=== PATIENT | male | born 1930 | race Caucasian/White ===

== ENCOUNTER 2017-09-08 17:25 | Emergency (ER) | payer MEDICARE, BC ==
[2017-09-08 18:37] LABS: CHLORIDE,CL 106 mmol/L (98-107); SODIUM,NA 143 mmol/L (136-145)
--- NOTE | 2017-09-08 18:58 | EDM.PDOC ---
<Francis Leone W - Last Filed: 09/08/17 18:52> ED HPI GENERAL MEDICAL PROBLEM - General Chief Complaint: General Time Seen by Provider: 09/08/17 17:25 Source of Information: Reports: Patient History Limitations: Reports: No Limitations - History of Present Illness INITIAL COMMENTS - FREE TEXT/NARRATIVE: Pt. presents to ER with complaints of "heaviness" to his R foot. Pt. states that the symptoms started at approx. 16:00 this afternoon. Pt. called 911 and he was transported to this facility. Pt. states that yesterday he had similar symptoms, with heaviness of the R foot as well as unsteady gait at that time as well. He denies any head trauma. He states that he has a history of peripheral neuropathy, but states that these symptoms were "different". He described the sensation as if something heavy was hanging from his foot, and felt as though he was standing on a soft surface, not a hard floor. EMS staff relates that he was somewhat unsteady on his feet when he was walking on scene. He denies any other neurological symptoms, such as difficulty with speech or ambulation, headache, chest pain, or shortness of breath. He is currently anticoagulated with coumadin due to A-fib, and his INR is therapeutic at 2.7. Initial NIH stroke scale was 0. Onset: Today Onset Date: 09/08/17 Onset Time: 16:00 - Related Data Allergies Allergy/AdvReac Type Severity Reaction Status Date / Time No Known Allergies Allergy Verified 09/08/17 17:38 Home Meds: Home Meds Acetaminophen [Tylenol Extra Strength] 1 tab PO TID PRN 11/05/14 [History] Acyclovir [Zovirax] 400 mg PO BID 11/05/14 [History] Aspirin [Children's Aspirin] 81 mg PO DAILY 11/05/14 [History] Desonide [Desonide 0.05%] 1 applic TRDERM BID PRN 11/05/14 [History] Fish Oil/[place]-3 Fatty Acids [Fish Oil 1,000 MG] 1 cap PO BID 11/05/14 [History] Flaxseed Oil 1,000 mg PO BID 11/05/14 [History] Furosemide 80 mg PO DAILY 11/05/14 [History] Hydrocodone/Acetaminophen [[place] 5-325] 1 tab PO Q4HR PRN 11/05/14 [History] Loratadine 10 mg PO ASDIRECTED PRN 11/05/14 [History] Losartan [Cozaar] 25 mg PO DAILY 11/05/14 [History] Multivitamin with Minerals [Multiple Vitamin] 1 tab PO DAILY 11/05/14 [History] Pantoprazole Sodium [Protonix] 20 mg PO DAILY 11/05/14 [History] Simvastatin [Zocor] 10 mg PO DAILY 11/05/14 [History] Temazepam [Restoril] 1 cap PO DAILY 11/05/14 [History] Triamcinolone Acetonide [Kenalog 0.1% Crm] 1 applic BID 11/05/14 [History] Warfarin [Coumadin] 5 mg PO DAILY 11/05/14 [History] metFORMIN [Glucophage] 500 mg PO BIDMEALS 11/05/14 [History] metroNIDAZOLE [metroNIDAZOLE 0.75% Cream] 1 applic EPIDUR BID PRN 11/05/14 [ History] Past Medical History HEENT History: Reports: Cataract Cardiovascular History: Reports: Afib, Heart Failure, High Cholesterol, Hypertension Endocrine/Metabolic History: Reports: Diabetes, Type II - Past Surgical History HEENT Surgical History: Reports: Cataract Surgery Musculoskeletal Surgical History: Reports: Arthroscopic Knee, Shoulder Surgery Social & Family History - Tobacco Use Smoking Status *Q: Never Smoker Used Tobacco, but Quit: Yes Month Tobacco Last Used: 40 years ago Second Hand Smoke Exposure: No - Alcohol Use Days Per Week of Alcohol Use: 2 Number of Drinks Per Day: 3 Total Drinks Per Week: 6 - Recreational Drug Use Recreational Drug Use: No Drug Use in Last 12 Months: No ED ROS GENERAL - Review of Systems Review Of Systems: See Below Constitutional: Reports: No Symptoms HEENT: Reports: No Symptoms, Other (History of Meniere's disease) Respiratory: Reports: No Symptoms Cardiovascular: Reports: No Symptoms Endocrine: Reports: No Symptoms GI/Abdominal: Reports: No Symptoms : Reports: No Symptoms Musculoskeletal: Reports: Muscle Stiffness (chronic cramping to posterior portions of his legs.) Neurological: Reports: Paresthesia (chronic peripheral neuropathy to feet), Difficulty Walking, Gait Disturbance. Denies: Confusion, Dizziness, Tremors, Trouble Speaking, Change in Speech Psychiatric: Reports: No Symptoms Hematologic/Lymphatic: Reports: No Symptoms Immunologic: Reports: No Symptoms ED EXAM, GENERAL - Physical Exam Exam: See Below Exam Limited By: No Limitations General Appearance: Alert, WD/WN, No Apparent Distress Eye Exam: Bilateral Eye: EOMI, Normal Fundi, PERRL Ears: Normal External Exam, Normal Canal, Hearing Grossly Normal, Normal TMs Nose: Normal Inspection, Normal Mucosa, No Blood Throat/Mouth: Normal Inspection, Normal Lips, Normal Teeth, Normal Gums, Normal Oropharynx, Normal Voice, No Airway Compromise Head: Atraumatic, Normocephalic Neck: Normal Inspection, Supple, Non-Tender, Full Range of Motion Respiratory/Chest: No Respiratory Distress, Lungs Clear, Normal Breath Sounds, No Accessory Muscle Use, Chest Non-Tender Cardiovascular: Normal Peripheral Pulses, No Edema, No Gallop, No JVD, No Murmur , No Rub, Irregularly Irregular GI/Abdominal: Normal Bowel Sounds, Soft, Non-Tender, No Organomegaly, No Distention, No Abnormal Bruit, No Mass (Male) Exam: No Hernia, Normal Inspection, Normal Prostate, Circumcised Back Exam: Normal Inspection, Full Range of Motion, NT Extremities: Normal Inspection, Normal Range of Motion, Non-Tender, Normal Capillary Refill, No Pedal Edema Neurological: Alert, Oriented, CN II-XII Intact, Normal Cognition, Normal Gait, Normal Reflexes, No Motor/Sensory Deficits, Sensory/Motor Deficit (Please see HPI. Sensory and motor function are WNL.) Psychiatric: Normal Affect Skin Exam: Warm, Dry, Intact, Normal Color, No Rash Course - Vital Signs Last Recorded V/S: Last Vital Signs Temp 36.6 C 09/08/17 17:25 Pulse 62 09/08/17 19:15 Resp 16 09/08/17 19:15 BP 154/90 H 09/08/17 19:15 Pulse Ox 98 09/08/17 19:15 - Orders/Labs/Meds Orders: Active Orders 24 hr Category Date Time Status Head wo Cont [CT] Stat Exams 09/08/17 17:56 Taken Sodium Chloride 0.9% [Saline Flush] Med 09/08/17 19:03 Active 10 ml FLUSH ASDIRECTED PRN Peripheral IV Insertion Adult [OM.PC] Routine Oth 09/08/17 19:03 Ordered Medication Orders Sodium Chloride (Saline Flush) 10 ml FLUSH ASDIRECTED PRN PRN Reason: Keep Vein Open Labs: Laboratory Tests 09/08/17 09/08/17 09/08/17 Range/Units 18:11 18:11 18:11 WBC 9.4 (4.0-10.0) x10^3/uL RBC 3.51 L (4.5-6.0) x10^6/uL Hgb 11.7 L (14.0-18.0) g/dL Hct 35.3 L (40.0-52.0) % MCV 100.6 H (78.0-93.0) fL MCH 33.3 H (26.0-32.0) pg MCHC 33.1 (32.0-36.0) g/dL RDW Coeff of Meaghan 13.5 (10.0-15.0) % Plt Count 231 (130-400) x10^3/uL Neut % (Auto) 54.9 (50.0-80.0) % Lymph % (Auto) 30.6 (25.0-50.0) % Moore % (Auto) 9.2 (2.0-11.0) % Eos % (Auto) 4.8 H (0.0-4.0) % Baso % (Auto) 0.5 (0.2-1.2) % PT 25.3 H D (9.8-11.8) SEC INR 2.4 (2.0-3.5) Sodium 143 (136-145) mmol/L Potassium 3.8 (3.5-5.1) mmol/L Chloride 106 (98-107) mmol/L Carbon Dioxide 29 (21-32) mmol/L BUN 24 H (7-18) mg/dL Creatinine 1.3 (0.70-1.30) mg/dL Est Cr Clr Drug Dosing 42.64 mL/min Estimated GFR (MDRD) 52 Glucose 177 H (74-106) mg/dL Calcium 8.7 (8.5-10.1) mg/dL Corrected Calcium 8.86 (8.5-10.1) mg/dL Total Bilirubin 0.5 (0.2-1.0) mg/dL AST 17 (15-37) U/L ALT 25 (16-63) U/L Alkaline Phosphatase 65 (46-116) U/L C-Reactive Protein < 0.2 (<=0.9) mg/dL Total Protein 7.1 (6.4-8.2) g/dL Albumin 3.8 (3.4-5.0) g/dL Globulin 3.3 Albumin/Globulin Ratio 1.15 Meds: Medications Generic Name Dose Route Start Last Admin Trade Name Freq PRN Reason Stop Dose Admin Sodium Chloride 10 ml 09/08/17 19:03 Saline Flush FLUSH ASDIRECTED PRN Keep Vein Open - Radiology Interpretation Free Text/Narrative:: CT brain is negative Departure - Departure Time of Disposition: 19:25 Disposition: DC/Tfer to Acute Hospital 02 Condition: Good Clinical Impression: TIA (transient ischemic attack) - Discharge Information Referrals: Toyin Webster MD [Primary Care Provider] - Forms: ED Department Discharge, Interfacility Transfer EMTALA - Problem List Review Problem List Initiated/Reviewed/Updated: Yes - Assessment/Plan Assessment:: heaviness to R lower extremity and unsteady gait, resolved. Plan: Pt. will be transported to [facility] in [place] for MRA. I spoke with Dr. Leigh regarding this pt. He will transported via [facility] ground ambulance. <Rusty Gaspar - Last Filed: 09/08/17 21:26> Course - Re-Assessments/Exams Free Text/Narrative Re-Assessment/Exam: 09/08/17 21:26 patient did leave for [place] at 2105 via EMS
[2017-09-08] MEDS ORDERED: Sodium Chloride 0.9% 10 ML Syringe FLUSH PRN (19:03)
[2017-09-08 19:16] VITALS: BP 154/90
== END 2017-09-08 21:05 | disposition short-term general hospital (02) ==
LOC: VM.ED 17:25
DX: G45.9 Transient cerebral ischemic attack, unspecified (principal); I11.0 Hypertensive heart disease with heart failure; I50.9 Heart failure, unspecified; E11.9 Type 2 diabetes mellitus without complications; Z79.899 Other long term (current) drug therapy; Z79.82 Long term (current) use of aspirin; Z79.01 Long term (current) use of anticoagulants; Z79.84 Long term (current) use of oral hypoglycemic drugs; Z87.891 Personal history of nicotine dependence
CPT/HCPCS: 36415; 70450; 80053; 85025; 85610; 86140; 99285

== ENCOUNTER 2019-08-16 11:37 | Inpatient (IN) | payer MEDICARE, BC ==
[2019-08-16] MEDS ORDERED: Acetaminophen 325 MG Tab PO PRN (11:47)
[2019-08-16] MEDS ORDERED: Loratadine 10 MG Tab PO PRN (12:45)
[2019-08-16] MEDS ORDERED: DESONIDE TRDERM PRN (12:45)
[2019-08-16] MEDS ORDERED: Acetaminophen/HYDROcodone 325-5 MG Tab PO PRN (12:45)
[2019-08-16] MEDS ORDERED: TRIAMCINOLONE ACETONIDE 0.5% TOP PRN (12:45)
[2019-08-16] MEDS ORDERED: Non-Formulary Medication 1 Each (Metronidazole [Metronidazole 0.75% Cream] 1 APPLIC) EPIDUR PRN (12:45)
[2019-08-16] MEDS ORDERED: Acyclovir 200 MG Cap PO PRN (12:45)
[2019-08-16 12:53] LABS: ANION GAP 17.2 mmol/L (10-20); CHLORIDE,CL 102 mmol/L (98-107); SODIUM,NA 138 mmol/L (136-145)
[2019-08-16] MEDS: Azithromycin 250 MG Tab PO SCH (13:37)
[2019-08-16] MEDS: cefTRIAXone 1 GM Vial IVPUSH SCH (13:37)
[2019-08-16] MEDS ORDERED: Sodium Chloride 0.9% 1,000 ML IV SCH (13:45)
[2019-08-16] MEDS ORDERED: Albuterol HFA 18 Gm Inhaler INH PRN (14:16)
[2019-08-16] MEDS ORDERED: Albuterol 0.083% 2.5 MG/3 ML Neb Soln NEB PRN (14:21)
[2019-08-16] MEDS ORDERED: Iopamidol 612 MG/ML 100 ML Bottle IVPUSH ONE (14:57)
--- NOTE | 2019-08-16 15:18 | PCM.SN ---
- Free Text/Narrative Note: Pt's influenza A came back positive. Due to sudden worsening of symptoms for 1 month, will treat with tamiflu. Dose is reduced due to renal function. Clinic chest xray had probable pneumonia with fibrosis, proBNP was elevated, normal troponin and D Dimer, will do chest CT with contrast for more definitive lung evaluation. Will continue rocephin and zithromax, with scheduled nebs of duonebs. Sign out will be given to Anthony Deg[facility] for weekend care.
[2019-08-16] MEDS: Oseltamivir 30 MG Cap PO SCH ×2 (15:57→19:45)
[2019-08-16] MEDS: Albuterol/Ipratropium 3.0-0.5 MG/3 ML Neb Soln NEB SCH ×2 (15:57→19:46)
--- NOTE | 2019-08-16 16:03 | CT ---
[id number] CT/CT Chest W IV Exam: CT Chest W IV Clinical Data: INTERSTITIAL FIBROSIS SHORTNESS OF BREATH COMPARISON: CORRELATION IS MADE WITH THE CHEST RADIOGRAPH OF JULY 19, 2019 FINDINGS: There is mild fibrosis at the lung bases There is mild to moderate bronchiectasis There is no honeycombing There is minimal pleural thickening at the lung bases also There is upper lobe centrilobular emphysema There is a moderate degree of mediastinal adenopathy There is no pulmonary embolus There is suggestion of pulmonary artery hypertension There is a fatty liver. There is a small upper pole left renal cyst There is no adrenal mass IMPRESSION: INTERSTITIAL PULMONARY PARENCHYMAL FIBROSIS THIS MAY REPRESENT NONSPECIFIC INTERSTITIAL PNEUMONITIS CENTRILOBULAR EMPHYSEMA MODERATE MEDIASTINAL ADENOPATHY NO PULMONARY EMBOLUS SEEN Neftali Devi MD 08/16/19 0250 Thank you for allowing us to participate in the care of your patient.
--- NOTE | 2019-08-16 18:00 | HP ---
CHIEF COMPLAINT: Shortness of breath and weakness. HISTORY OF PRESENT ILLNESS: The patient is an 89-year-old male who has been treated at the clinic outpatient for bronchopneumonia for several weeks. He first got ill on 07/19/2019 and was felt to have an atypical pneumonia, which he commented at the clinic had been actually bothering him for a month of cough. He is having a productive yellow sputum. He could barely go up 13 steps, had to stop because he was more short of breath, which was not as normal for him. His heart rate had been up into the 130s and saturations have been down to 87%. Energy level is poor. He had quit smoking in the past, not really diagnosed with COPD, but had been started on a nebulizer just about a week ago. When he was seen on 07/19/2019, he had a chest x-ray that was done at [facility], which came back normal. Lab work had been done, which showed a white blood cell count at that time of 11.5, hemoglobin 9.6 with 61% neutrophils, 25 lymphocytes. He had a creatinine of 1.38, glucose of 195, GFR 49, which is about the same. Sodium 141, potassium was normal. The patient was noted to be slightly anemic with a reticulocyte that was elevated at 2.9, immature reticulocytes were 17.8. Thyroid came back normal at 3.99. Sedimentation rate was 22, ferritin 52, B12 1900, folic acid 19.3. His INR had been staying within therapeutic range. The patient then did have some extra Lasix added on 07/22/2019 of half a pill twice a day for 3 days as he may have had little bit of pulmonary congestion. Then, when the patient was seen on 08/12/2019, chest x-ray was read as question minimally changed. He was placed on Levaquin 500 mg daily. He had stored iron studies, which actually did show him to be low iron at 28, TIBC 27, iron saturation 7, so he was told to start on iron pill. His ferritin level was 39. Hemoglobin had improved to 10.4. The patient has a fullness in his chest. He is feeling little bit more tough with walking. He does have a productive cough. He does live at home alone now since his has . MEDICATIONS: He is currently on acetaminophen 500 mg 3 times a day as needed, acyclovir 400 mg b.i.d. p.r.n. outbreaks, albuterol MDI 2 puffs q.4 hours p.r.n., DuoNeb every 6 hours, aspirin 81 mg 1 pill daily, docusate 100 mg 1 pill daily, ferrous sulfate 325 one pill daily, flax powder twice a day, Flonase 2 puffs twice a day, Lasix 80 mg half a pill daily, Lupron gets 45 mg every 6 months, loratadine 10 mg 1 pill daily as needed, losartan 50 mg 1 pill daily, metformin 500 mg 1 pill twice a day, some capsule twice a day which is a nerve supplement, multivitamin 1 pill a day, omega-3 fatty acid 1000 mg twice a day, Protonix 20 mg 1 pill daily, and Sarna lotion 3 times a day as needed, Zocor 10 mg take a half a pill at bedtime, Restoril 225 one pill daily, triamcinolone 0.5% cream twice a day as needed, Coumadin per protocol. ALLERGIES: None known. His last Coumadin profile had been where he was taking 5 mg on Monday, Monday, , Monday, Monday and he takes 7.5 mg on Mondays and Fridays. PAST MEDICAL HISTORY: The patient has hypertension, chronic atrial fibrillation, hypercholesterolemia. He has had prostate cancer since 2006. He has type 2 diabetes mellitus. He has chronic CHF with cardiomegaly, most recent echocardiogram was on 09/09/2017 where his ejection fraction was 50%. No significant aortic regurgitation. Mild to moderate mitral regurgitation. Mild pulmonic regurgitation. Pulmonary artery pressure 33, mild to moderate tricuspid regurgitation. He has valvular heart disease. TIA in 2018. He had some speech difficulties. MRI was negative. He had a normal CTA of his neck and CTA of his brain, felt to be sciatica with right leg mobility issues, did resolve. He has had chronic kidney disease stage 3, mitral valve disorder. He has had Nestor-Mason respirations with known central apnea, well controlled with CPAP. He has had obstructive sleep apnea. He has had thoracic back pain, macrocytic anemia. He has had anxiety disorder, some forgetfulness, 2013 mini- mental status was 29/30, which may have been stressed with his . He has had pulmonary hypertension, in 2014 it was up to 70, but improved I believe with CPAP. He has had primary insomnia, goiter, diabetic neuropathy of his great toe, chronic right shoulder pain, gastroesophageal reflux disease, hyperplastic polyp of the descending colon. His last colonoscopy was on 11/11/2014 and it was normal. He had previous radiation proctitis noted in 2008. Next scope was felt to be p.r.n. He has had sciatica on his back. He has had some skin lesions. He has had BPH. He has had rosacea. Personal history of allergic rhinitis. He has had gingival and periodontal disease, sinus pain, cataracts, chest pain. He had a Cardiolite stress test on 04/16/2007 that was normal. He has had zoster of his eye on the right, had vertebral crush injury when struck by a large tinner automatic. 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 He has had atopic dermatitis. PAST SURGICAL HISTORY: He has had arthroscopy of his left knee in 1988, right shoulder in 2000. 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 He has had tear duct system probing in the past, skin biopsy. FAMILY MEDICAL HISTORY: Mother has had a stroke. Father has had heart failure. Sister has had heart failure. Another sister had pancreatic cancer. Brother had cerebral aneurysm. Mother brother had alcoholism. SOCIAL HISTORY: He is . He has 5 children. 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 He stopped smoking in 1997. Prior to that, he smoked a pack a day. He has had alcohol consumption of beer a day in the past. He currently lives at home alone. REVIEW OF SYSTEMS: His weight has been staying about the same. He has been little bit more short of breath with activities. No heart palpitations. Does have a productive cough. No nausea. No diarrhea. Does feel weak. No bruise on skin. PHYSICAL EXAMINATION: Vital Signs: Show that his weight is 184 pounds, temperature 98.3, pulse is 106, blood pressure is 126/60. General: He does appear little bit pale. Does have to steady himself with walking. Voice is somewhat gravelly. HEENT: Tympanic membranes are normal bilaterally. Pupils equal and reactive to light. No injection, question slightly dry. Neck: No anterior cervical lymphadenopathy. Heart: Regular rate and rhythm. Lungs: Have diminished breath sounds on bases bilaterally. Abdomen: Soft. Extremities: Lower extremities, no edema. Neurologic: He is alert and oriented x3. IMAGING DATA: Chest x-ray was obtained, which shows questionably increased infiltrate along left heart border, but difficult to read. Do not appreciate effusions. IMPRESSION: 1. Community-acquired pneumonia, failing outpatient therapy with previous use of Vibramycin as well as Levaquin. 2. Chronic obstructive pulmonary disease exacerbation. 3. Mild tachycardia, multifactorial. 4. Chronic atrial fibrillation. 5. Mild dehydration. 6. Chronic kidney disease. 7. Type 2 diabetes mellitus. 8. Obstructive sleep apnea. 9. Valvular heart disease. 10.History of prostate cancer. PLAN: We will admit the patient to Acute Care as I feel he is unsafe at home with his decreased ability to walk and is tachycardic. I would like to have his oxygen saturations monitored as well as his pulse monitored. We will give him DuoNeb. We will place him on Rocephin 1 g IV q.24 as well as Zithromax 500 mg daily. We will closely monitor his INR. He was just recently started on iron 325 one pill daily for some anemia. We will do lab work. Depending on lab work, we need to determine if he might need a CT scan. His chest x-ray from the clinic report is pending. Did discuss code level status with the patient. He does not want to be resuscitated, so therefore he is do not resuscitate/do not intubate. We will get physical therapy for the patient for strengthening. Do anticipate his hospital stay to be short unless he would need further evaluation with cardiac status such as for heart failure. If that would be needed, he would need transfer to [place]. Lab work is pending at the time of this dictation. Will check for Influenza as well as rule out heart failure concersn. GM08/16/2019 12:10:11 MODL: 08/16/2019 17:53:26 /[id number] CAROLINE
[2019-08-16] MEDS: Fish Oil/Omega-3 Fatty Acids 1 Gm Cap PO SCH (19:44)
[2019-08-16] MEDS: Warfarin 2.5 MG Tab PO SCH (19:45)
[2019-08-16] MEDS: FLAXSEED OIL 1000 MG PO SCH (19:46)
[2019-08-16] MEDS ORDERED: Temazepam 15 MG Cap PO SCH (20:00)
[2019-08-16] MEDS: Acetaminophen 500 MG Tab PO PRN (22:43)
[2019-08-17] MEDS: Sodium Chloride 0.9% 10 ML Syringe IV PRN (03:00)
[2019-08-17] MEDS: Albuterol/Ipratropium 3.0-0.5 MG/3 ML Neb Soln NEB SCH ×4 (06:38→21:15)
[2019-08-17] MEDS: Acetaminophen 500 MG Tab PO PRN (06:38)
[2019-08-17] MEDS ORDERED: Fluticasone Propionate Nasal Spray 16 GM Bottle NASBOTH PRN (08:00)
[2019-08-17 08:09] LABS: ANION GAP 15.2 mmol/L (10-20)
[2019-08-17] MEDS: Aspirin 81 MG Tab.Chew PO SCH (10:28)
[2019-08-17] MEDS: metFORMIN 500 MG Tab PO SCH (10:28)
[2019-08-17] MEDS: Fish Oil/Omega-3 Fatty Acids 1 Gm Cap PO SCH ×2 (10:29→21:16)
[2019-08-17] MEDS: Pantoprazole 40 MG Tab.CR PO SCH (10:29)
[2019-08-17] MEDS: Docusate Sodium 100 MG Cap PO SCH (10:29)
[2019-08-17] MEDS: Furosemide 40 MG Tab PO SCH (10:29)
[2019-08-17] MEDS: Simvastatin 10 MG Tab PO SCH (10:29)
[2019-08-17] MEDS: Multivitamins with Iron/Calcium/Folic Acid/Minerals Tab PO SCH (10:29)
[2019-08-17] MEDS: Losartan 50 MG Tab PO SCH (10:30)
[2019-08-17] MEDS: Ferrous Sulfate 325 MG Tab PO SCH (10:30)
[2019-08-17] MEDS: FLAXSEED OIL 1000 MG PO SCH ×2 (10:31→21:17)
[2019-08-17] MEDS: Oseltamivir 30 MG Cap PO SCH ×2 (10:31→21:16)
[2019-08-17] MEDS: cefTRIAXone 1 GM Vial IVPUSH SCH (11:06)
[2019-08-17] MEDS: Azithromycin 250 MG Tab PO SCH (11:06)
[2019-08-17] MEDS: guaiFENesin 600 MG Tab.ER PO SCH ×2 (18:57→21:16)
[2019-08-17] MEDS ORDERED: Temazepam 15 MG Cap PO SCH (20:00)
[2019-08-17] MEDS: Warfarin 5 MG Tab PO SCH (21:16)
[2019-08-17] MEDS: TEMAZEPAM 7.5 MG PO SCH (21:17)
[2019-08-18] MEDS: Albuterol/Ipratropium 3.0-0.5 MG/3 ML Neb Soln NEB SCH ×5 (05:35→20:30)
[2019-08-18 08:19] LABS: ANION GAP 15.1 mmol/L (10-20)
[2019-08-18] MEDS ORDERED: methylPREDNISolone Sodium Succinate 40 MG/1 ML SDV IVPUSH ONE (10:16)
[2019-08-18] MEDS: Furosemide 40 MG Tab PO SCH (10:19)
[2019-08-18] MEDS: Docusate Sodium 100 MG Cap PO SCH (10:19)
[2019-08-18] MEDS: Ferrous Sulfate 325 MG Tab PO SCH (10:19)
[2019-08-18] MEDS: Losartan 50 MG Tab PO SCH (10:19)
[2019-08-18] MEDS: Fish Oil/Omega-3 Fatty Acids 1 Gm Cap PO SCH ×2 (10:19→20:31)
[2019-08-18] MEDS: Oseltamivir 30 MG Cap PO SCH ×2 (10:19→20:32)
[2019-08-18] MEDS: metFORMIN 500 MG Tab PO SCH (10:20)
[2019-08-18] MEDS: Simvastatin 10 MG Tab PO SCH (10:20)
[2019-08-18] MEDS: Pantoprazole 40 MG Tab.CR PO SCH (10:20)
[2019-08-18] MEDS: guaiFENesin 600 MG Tab.ER PO SCH ×2 (10:20→20:32)
[2019-08-18] MEDS: Aspirin 81 MG Tab.Chew PO SCH (10:21)
[2019-08-18] MEDS: Sodium Chloride 0.9% 10 ML Syringe IV PRN ×3 (10:21→20:30)
[2019-08-18] MEDS: FLAXSEED OIL 1000 MG PO SCH ×2 (10:21→20:31)
[2019-08-18] MEDS: Acetaminophen 500 MG Tab PO PRN (10:22)
[2019-08-18] MEDS: Multivitamins with Iron/Calcium/Folic Acid/Minerals Tab PO SCH (10:22)
[2019-08-18] MEDS: cefTRIAXone 1 GM Vial IVPUSH SCH (11:56)
[2019-08-18] MEDS: Azithromycin 250 MG Tab PO SCH (11:57)
[2019-08-18] MEDS ORDERED: metFORMIN 500 MG Tab PO STA (17:38)
[2019-08-18] MEDS: Warfarin 5 MG Tab PO SCH (20:31)
[2019-08-18] MEDS: TEMAZEPAM 7.5 MG PO SCH (20:33)
[2019-08-19] MEDS: Albuterol/Ipratropium 3.0-0.5 MG/3 ML Neb Soln NEB SCH ×4 (07:22→20:27)
[2019-08-19 07:36] LABS: ANION GAP 14.2 mmol/L (10-20); CHLORIDE,CL 105 mmol/L (98-107); SODIUM,NA 139 mmol/L (136-145)
[2019-08-19] MEDS: methylPREDNISolone Sodium Succinate 125 MG/2 ML SDV IVPUSH SCH ×2 (09:13→20:26)
[2019-08-19] MEDS: Acetaminophen 500 MG Tab PO PRN ×2 (09:14→20:26)
[2019-08-19] MEDS: Multivitamins with Iron/Calcium/Folic Acid/Minerals Tab PO SCH (09:15)
[2019-08-19] MEDS: Furosemide 40 MG Tab PO SCH (09:16)
[2019-08-19] MEDS: Ferrous Sulfate 325 MG Tab PO SCH ×3 (09:16→18:50)
[2019-08-19] MEDS: guaiFENesin 600 MG Tab.ER PO SCH ×2 (09:16→20:27)
[2019-08-19] MEDS: metFORMIN 500 MG Tab PO SCH ×2 (09:17→18:50)
[2019-08-19] MEDS: Docusate Sodium 100 MG Cap PO SCH (09:17)
[2019-08-19] MEDS: Losartan 50 MG Tab PO SCH (09:17)
[2019-08-19] MEDS: Pantoprazole 40 MG Tab.CR PO SCH (09:18)
[2019-08-19] MEDS: Aspirin 81 MG Tab.Chew PO SCH (09:18)
[2019-08-19] MEDS: Simvastatin 10 MG Tab PO SCH (09:18)
[2019-08-19] MEDS: Oseltamivir 30 MG Cap PO SCH ×2 (09:19→20:27)
[2019-08-19] MEDS: FLAXSEED OIL 1000 MG PO SCH ×2 (09:19→20:32)
[2019-08-19] MEDS: Fish Oil/Omega-3 Fatty Acids 1 Gm Cap PO SCH ×2 (09:21→20:26)
--- NOTE | 2019-08-19 09:59 | CR ---
[id number] RAD/RAD Chest PA And Lateral EXAM: RAD Chest PA And Lateral INDICATION: INFLUENZA WITH HYPOXEMIA. COMPARISON: None. DISCUSSION: Cardiomediastinal silhouette is enlarged but stable. Chronic interstitial changes are again reidentified, right greater than left. No new pulmonary infiltrate. No pneumothorax or pleural effusion. IMPRESSION: Chronic interstitial changes without acute cardiopulmonary findings. Silver Ribera DO 08/19/19 0958 Thank you for allowing us to participate in the care of your patient.
--- NOTE | 2019-08-19 10:38 | PN ---
Progress Note for ESTRELAL TAYLOR Date: 08/19/2019 Room #: VM.212 SUBJECTIVE: The patient is still feeling a little bit weak. He gets winded with walking. He has only been able to get weaned down to 1 L of oxygen. He does have somewhat of a productive cough. He was started on Mucinex yesterday. It is noted that patient is somewhat anemic and that is new for patient. OBJECTIVE: Vital Signs: His weight is 139.6 kg, his temperature is 36.3, pulse 69, blood pressure is 123/71, respiratory rate is 18, and saturations 91% on room air. Skin: More perfuse than before. Heart: Regular rate. Lungs: Have inspiratory crackles on left base. Abdomen: Soft. Lower Extremities: No edema. He is feeling somewhat weak throughout. LABORATORY DATA: Came back today showing his white blood cell count 8.5, hemoglobin 8.8, platelets are 235, 70 segs, 2 bands, and 16 lymphocytes. INR is 3.0. Sodium is 139, potassium 4.1, creatinine 1.1, GFR greater than 60, and glucose 158. To note, the patient did have a ferritin that was low normal, TIBC that was high, and percent iron and iron were low; that was done in the clinic about a week prior to admission. IMPRESSION: 1. Influenza A. 2. Pneumonitis. 3. Hypoxemia requiring oxygen. 4. Exacerbation of chronic obstructive pulmonary disease. PLAN: We will repeat chest x-ray today on patient. We will place him back on IV steroids to help with lung function. We will increase his iron to 1 pill twice a day. We will continue him on acute care today and tomorrow. If not feeling strong enough, he may need placement on swing bed for further strengthening. GM08/19/2019 08:29:33 MODL: 08/19/2019 10:01:06 /[id number]
--- NOTE | 2019-08-19 10:38 | PN ---
Progress Note for ESTRELLA TAYLOR Date: 08/17/2019 Room #: VM.212 CHIEF COMPLAINT: 1. Fatigue. 2. Chronic cough. 3. Shortness of breath. SUBJECTIVE: This is hospital day #2 for an 89-year-old male patient who was admitted from the [facility] yesterday for a diagnosis of community-acquired pneumonia, COPD, tachycardia. The patient offers no specific complaints today. He states that his cough is improving, however, he feels like he needs to cough up sputum. The patient has not had any headaches, dizziness, or lightheadedness. The patient states that he is feeling much better since yesterday. Patient has not had any chest pain or palpitations. The patient states that he gets a little short of breath with activity. The patient has had to continue using oxygen. OBJECTIVE: VITAL SIGNS: Blood pressure 125/60, temperature is 99.2, pulse is 79, respiratory rate is 22, and oxygen saturation 95% on 2 L. CONSTITUTIONAL: Patient is cooperative. Patient does not appear to be in any acute distress. Patient is alert. RESPIRATORY: Upper lung sounds are clear, the patient has rhonchi and crackles at bilateral bases, no shortness of breath. CARDIAC: Regular rate and rhythm, no murmurs. ABDOMEN: Soft, nontender. Active bowel sounds x4. SKIN: Intact, warm and dry. NEUROLOGICAL: Patient is alert. Sensation intact. Patient is oriented to person, place, and time. LABORATORY STUDIES: 1. CBC, white blood cell count 12.0, hemoglobin 9.3, hematocrit 29.2, platelets are 213,000. 2. INR is 2.2. 3. BMP, sodium is 138, potassium 4.2, chloride 103, CO2 is 24, anion gap is 15.2, BUN is 28, creatinine is 1.3. GFR is 52. Glucose is 186. 4. Lactic acid 1.8. 5. CRP is 15.6. ASSESSMENT: 1. Community-acquired pneumonia, failing outpatient therapy. 2. Chronic obstructive pulmonary disease with acute exacerbation. 3. Mild tachycardia, multifactorial. 4. Chronic atrial fibrillation. 5. Mild dehydration. 6. Chronic kidney disease. 7. Type 2 diabetes. 8. Obstructive sleep apnea. 9. Valvular heart disease. 10.History of prostate cancer. 11.Positive influenza A. PLAN: Hospital day #2 for an 89-year-old male patient who was admitted for the above diagnosis. We will continue the patient on oxygen as his saturations seem to drop with activity. Continue with the same antibiotics that he is currently on. I would encourage the patient to ambulate as he is able. We discussed cough and deep breathing exercises. We will recheck lab work in the morning. The patient does seem to be improving, therefore, I do not think that he needs transfer to higher level of care. I anticipate discharge to home either tomorrow or the next day. The patient is to continue on his home medications. TB: 08/17/2019 14:47:57 MODL: 08/17/2019 16:30:38 /[id number]
--- NOTE | 2019-08-19 10:38 | PN ---
Progress Note for ESTRELLA TAYLOR Date: 08/18/2019 Room #: VM.212 CHIEF COMPLAINT: 1. Shortness of breath. 2. Weakness. SUBJECTIVE: An 89-year-old male patient was admitted on 08/16/2019, for shortness of breath and weakness. The patient has been having a cough and generally not feeling well over the past couple of months. He had been treated with antibiotics as an outpatient, but does not seem to get any better. The patient was found to have community-acquired pneumonia and was admitted for IV antibiotics. The patient states that he continues to have shortness of breath. The patient states he still feels pretty weak. The patient is now having a productive cough producing a brown-appearing purulent sputum. The patient states he feels more short of breath with activity, especially getting up to go to the bathroom. The patient has not had any focal neurological problems. Patient denies any chest pain or palpitations. The patient was started on Mucinex last evening, which seems to help with expectoration. The patient states that he feels somewhat wheezy. The patient denies any pain. The patient does not have any abdominal pain, diarrhea, nausea, or vomiting. PHYSICAL EXAMINATION: General Presentation: The patient is alert. Patient is cooperative. The patient does not appear to be in any acute distress. Respiratory: The patient is tachypneic with activity. The patient has wheezing throughout all lung muñiz with scattered rhonchi, which does not clear with cough. Lung sounds are somewhat decreased. The patient does require oxygen with activity. Cardiovascular: Regular rate and rhythm, no murmur. Abdomen: Soft. Bowel sounds are hypoactive x4. Abdomen is nontender. Skin: Warm, warm, dry, and intact. Neurological: The patient is pleasantly conversive. Patient does not appear to be in any acute distress. Patient is alert and oriented x3. Patient is cooperative. Vital Signs: Weight 186, temperature 98.8, blood pressure 124/74, respiratory rate is 22, and oxygen saturation 87% on room air. LABORATORY WORK: 1. CBC, white blood cell count 9.0, hematocrit 28.5, platelets are 214,000. 2. PT/INR 2.4. 3. CMP: Sodium is 138, potassium 4.1, chloride 103, CO2 is 24, anion gap is 15.1, BUN is 24, creatinine is 1.3, GFR is 52, glucose is 164, calcium 8.4, bilirubin 0.8, AST is 28, ALT is 25, alkaline phosphatase 63, protein is 6.5. ASSESSMENT: 1. Community-acquired pneumonia, currently on IV antibiotics. 2. Chronic obstructive pulmonary disease exacerbation. 3. Mild tachycardia. 4. Chronic atrial fibrillation. 5. Mild dehydration. 6. Chronic kidney disease. 7. Type 2 diabetes mellitus. 8. Obstructive sleep apnea. 9. Valvular heart disease. 10.History of prostate cancer. PLAN: The patient will continue with acute cares for now. Concern is that the patient does not use oxygen at home, however, he has continued the need for oxygen while in the hospital. The patient is also needing oxygen with activity as his saturations drop into the mid 80s. We will continue with current oxygen therapy. We will continue the patient on Rocephin and Zithromax. I will give the patient onetime dose of Solu-Medrol 40 mg IV today to see if that will help with his wheezing. I do encourage the patient to get up and ambulate as much as possible today. The patient does not appear to be decompensated with any heart failure on exam today. We will continue all other medications the same. I would anticipate discharge over the next 1 to 2 days if the patient does improve. Otherwise, the patient may need swing bed. TB: 08/18/2019 11:02:10 MODL: 08/18/2019 14:52:54 /[id number]
[2019-08-19] MEDS: Azithromycin 250 MG Tab PO SCH (13:41)
[2019-08-19] MEDS: cefTRIAXone 1 GM Vial IVPUSH SCH (13:41)
[2019-08-19] MEDS: Insulin Lispro 100 Unit/ML 3 ML KwikPen SUBCUT SCH ×3 (13:42→20:47)
[2019-08-19] MEDS: Sodium Chloride 0.9% 10 ML Syringe IV PRN (20:26)
[2019-08-19] MEDS: Warfarin 2.5 MG Tab PO SCH (20:26)
[2019-08-19] MEDS: TEMAZEPAM 7.5 MG PO SCH (20:31)
[2019-08-19] MEDS ORDERED: Insulin Lispro 100 Unit/ML 3 ML KwikPen SUBCUT STA (20:39)
[2019-08-20 07:23] LABS: ANION GAP 15.7 mmol/L (10-20)
[2019-08-20] MEDS: Albuterol/Ipratropium 3.0-0.5 MG/3 ML Neb Soln NEB SCH ×4 (07:40→19:45)
[2019-08-20] MEDS: methylPREDNISolone Sodium Succinate 125 MG/2 ML SDV IVPUSH SCH ×2 (08:28→19:44)
[2019-08-20] MEDS: Fish Oil/Omega-3 Fatty Acids 1 Gm Cap PO SCH ×2 (08:29→19:45)
[2019-08-20] MEDS: Multivitamins with Iron/Calcium/Folic Acid/Minerals Tab PO SCH (08:29)
[2019-08-20] MEDS: Oseltamivir 30 MG Cap PO SCH ×2 (08:29→19:45)
[2019-08-20] MEDS: Pantoprazole 40 MG Tab.CR PO SCH (08:29)
[2019-08-20] MEDS: Losartan 50 MG Tab PO SCH (08:29)
[2019-08-20] MEDS: Docusate Sodium 100 MG Cap PO SCH (08:29)
[2019-08-20] MEDS: guaiFENesin 600 MG Tab.ER PO SCH ×2 (08:29→19:45)
[2019-08-20] MEDS: metFORMIN 500 MG Tab PO SCH ×2 (08:29→18:20)
[2019-08-20] MEDS: Ferrous Sulfate 325 MG Tab PO SCH ×2 (08:29→18:20)
[2019-08-20] MEDS: Aspirin 81 MG Tab.Chew PO SCH (08:29)
[2019-08-20] MEDS: Insulin Lispro 100 Unit/ML 3 ML KwikPen SUBCUT SCH ×4 (08:30→19:46)
[2019-08-20] MEDS: FLAXSEED OIL 1000 MG PO SCH ×2 (08:30→19:46)
[2019-08-20] MEDS: Simvastatin 10 MG Tab PO SCH (08:30)
[2019-08-20] MEDS: Furosemide 40 MG Tab PO SCH (08:30)
--- NOTE | 2019-08-20 09:03 | PN ---
Progress Note for ESTRELLA TAYLOR Date: 08/20/2019 Room #: VM.212 SUBJECTIVE: The patient is still coughing, but feeling a little bit better. He is just not quite sure of himself if he is ready to go home. He would like to be a little bit stronger with walking. He normally is not on oxygen during the day. Nebulizers have helped. It was noted that his blood sugars have been running higher, but this is due to the increased IV steroids that he has been on. OBJECTIVE: Vital Signs: His weight is 83.6, temperature is 36.3, pulse is 83, blood pressure is 107/71, respiratory rate is 18, sats are 97 on room air. Skin: Much pinker. Heart: Rate irregularly irregular. Lungs: Have inspiratory crackles on left base. Abdomen: Soft. Extremities: No edema. LABORATORY DATA: Today shows his white blood cell count 9.2, hemoglobin is stable at 8.7, platelets 253 with 90 segs, 1 band, 4 lymphocytes. INR is up to 4.7 today. Potassium is 4.7, sodium is 137, creatinine is 1.2, BUN is 34. Glucoses have ranged from 183 to 415. CRP is 7.1. ProBNP is 1454. Albumin 2.9. Chest x-ray yesterday is read as being negative. IMPRESSION: 1. Influenza. 2. Exacerbation of chronic obstructive pulmonary disease. 3. Pneumonitis. 4. Chronic atrial fibrillation. 5. Hypoxemia. PLAN: The patient will be placed on swing bed today. We will hold his Coumadin today. Once he is done with his Tamiflu today, that will be stopped as well as the Zithromax and Ceftin. We will reduce the patient's IV steroids and we will have him work with an incentive spirometer. I anticipate he will continue to receive therapies of OT and PT. GM08/20/2019 08:13:04 MODL: 08/20/2019 08:56:15 /[id number]
[2019-08-20] MEDS: Sodium Chloride 0.9% 10 ML Syringe IV PRN ×2 (13:07→19:45)
[2019-08-20] MEDS: Azithromycin 250 MG Tab PO SCH (13:08)
[2019-08-20] MEDS: cefTRIAXone 1 GM Vial IVPUSH SCH (13:08)
[2019-08-20] MEDS: Camphor/Menthol 0.5-0.5% Lotion 222 ML Bottle TOP SCH ×2 (13:09→20:01)
--- NOTE | 2019-08-20 13:29 | PCM.SN ---
- Free Text/Narrative Note: SInce pt was not picked up by PT or OT and he is being weaned from IV steroids, will continue pt on acute today and will get him set up for home O2 evaluate.
[2019-08-20] MEDS: TEMAZEPAM 7.5 MG PO SCH (20:43)
[2019-08-21] MEDS: Albuterol/Ipratropium 3.0-0.5 MG/3 ML Neb Soln NEB SCH ×3 (06:17→16:02)
[2019-08-21 07:09] LABS: ANION GAP 16.7 mmol/L (10-20)
[2019-08-21] MEDS: methylPREDNISolone Sodium Succinate 125 MG/2 ML SDV IVPUSH SCH (08:48)
[2019-08-21] MEDS: Multivitamins with Iron/Calcium/Folic Acid/Minerals Tab PO SCH (08:51)
[2019-08-21] MEDS: Docusate Sodium 100 MG Cap PO SCH (08:51)
[2019-08-21] MEDS: metFORMIN 500 MG Tab PO SCH (08:51)
[2019-08-21] MEDS: guaiFENesin 600 MG Tab.ER PO SCH (08:52)
[2019-08-21] MEDS: Losartan 50 MG Tab PO SCH (08:52)
[2019-08-21] MEDS: Simvastatin 10 MG Tab PO SCH (08:52)
[2019-08-21] MEDS: Pantoprazole 40 MG Tab.CR PO SCH (08:52)
[2019-08-21] MEDS: Furosemide 40 MG Tab PO SCH (08:52)
[2019-08-21] MEDS: Aspirin 81 MG Tab.Chew PO SCH (08:53)
[2019-08-21] MEDS: FLAXSEED OIL 1000 MG PO SCH (08:53)
[2019-08-21] MEDS: Ferrous Sulfate 325 MG Tab PO SCH (08:53)
[2019-08-21] MEDS: Fish Oil/Omega-3 Fatty Acids 1 Gm Cap PO SCH (08:53)
[2019-08-21] MEDS: Insulin Lispro 100 Unit/ML 3 ML KwikPen SUBCUT SCH ×2 (08:55→11:48)
[2019-08-21] MEDS: Camphor/Menthol 0.5-0.5% Lotion 222 ML Bottle TOP SCH (08:58)
[2019-08-21 10:56] VITALS: BP 156/85; PULSE 81
--- NOTE | 2019-08-22 02:50 | DISCH ---
PRIMARY DIAGNOSES: 1. Influenza A. 2. Exacerbation of chronic obstructive pulmonary disease. 3. Hypoxemia related to exacerbation of chronic obstructive pulmonary disease. 4. Possible community-acquired pneumonia. 5. Type 2 diabetes mellitus. 6. Acute anemia with iron deficiency anemia. 7. Chronic atrial fibrillation. 8. Hypertension. SUMMARY OF HISTORY AND PHYSICAL: The patient is an 89-year-old male who presented to the clinic because of shortness of breath and coughing. He had been treated as an outpatient for bronchitis with both Augmentin and Levaquin, but this was not getting better. He was found to be newly anemic, so he has been started on pantoprazole. His iron and TIBC levels were low. The patient was noted to have more hypoxemia, which is new. He had just been getting a nebulizer machine and some DuoNeb to help with respiratory status. When seen in the clinic, his weight is 184, temperature 98.3, pulse 106, blood pressure is 126/60. Generally, he appeared weak, pale, but was not steady walking. His lungs had diminished breath sounds on bases. Abdomen soft. Chest x-ray showed questionable increased infiltrate on left border. SUMMARY OF HOSPITAL COURSE: The patient was admitted to Acute Care. He was placed on IV Rocephin as well as IV Zithromax. His INR was monitored daily, was not felt he need Lovenox as he was on Coumadin and he was therapeutic. He was given oxygen for supplemental care. It was noted that he had recently been started on iron and his dose was increased while he is in the hospital. The patient was found to be positive for influenza A on admit, so therefore he was started on Tamiflu, but he was continued on the Zithromax and Rocephin. His white blood cell count on admission was 12.9, hemoglobin 9.9. INR was 2.7. Blood gases showed pH 7.33, pCO2 of 33, PO2 of 67, bicarb 20, sodium 138, potassium 4.9, creatinine 1.5, GFR 44, glucose 208. Lactic acid 2.6. LFTs normal. Troponin less than 0.017. ProBNP was 2410. SUMMARY OF HOSPITAL COURSE: The patient received physical therapy. He was placed on IV Solu-Medrol as he was having a difficult time getting wean from oxygen. He did undergo CT imaging of his chest because of prolonged time for improvement of respiratory status. It showed mild fibrosis, [id number] bronchiectasis. No honeycombing, pleural thickening noted, central lobular emphysema, moderate degree of mediastinal lymphadenopathy. No PE. There is a suggestion of pulmonary artery hypertension and fatty liver. No adrenal mass. There may be interstitial pneumonitis present as well. The patient slowly improved. His laboratory data was noted by the time of discharge on 08/20, his white blood cell count had come up to 14.3, hemoglobin 9.2, platelets 332, segs was 85, 8 lymphocytes. His INR gone up to 5.7 despite his Coumadin being held the day prior. Sodium is 139, potassium 4.7, creatinine 1.2, GFR 54, glucose 254. To note, his CRP had gone up to 15.6 on 08/17/2019, had improved to 7.1 by 08/20/2019. His proBNP had improved to 1454 on 08/20/2019. Chest x-ray was repeated which showed no acute process on 08/19/2019. The patient did have elevation of blood sugars because of steroid, so he was covered with sliding scale insulin. His metformin admission was reduced to 1 pill a day because of slightly reduced renal function, but it was allowed to go back to twice a day at the time of discharge. [id number] exam was held on 08/21/2019 for the patient in need of home health. The patient is a new start of home oxygen. He is also starting DuoNeb. 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 He will have home physical therapy to help with continued strengthening. The patient is dependent on others for transportation. He cannot walk more than 50 feet without becoming severely winded. The patient will be managed by myself to follow up improvement with home health status. His resuscitation status at the time of discharge is do not resuscitate/do not intubate. DISCHARGE MEDICATIONS: His medications at the time of discharge will be: His Coumadin which had been 7.5 on Mondays and Fridays and 5 mg rest of the week will be held until his next INR that is going to be done on 08/23/2019. Simvastatin 5 mg 1 pill daily, fish oil 1000 mg 1 pill twice a day, metformin 500 mg 1 p.o. b.i.d., loratadine 10 mg 1 pill daily p.r.n., furosemide 40 mg daily, flaxseed oil 1000 mg 1 pill twice a day, aspirin 81 mg 1 pill daily, acetaminophen 500 mg 3 times a day as needed, multivitamin 1 pill a day, Pantoprazole will be at 40 mg daily, acyclovir 400 mg b.i.d. p.r.n. flares of cold sores, losartan 50 mg 1 pill daily, temazepam 22.5 mg capsule at bedtime (home dose), DuoNeb 3 mL q.6 hours, ferrous sulfate 325 of 1 pill twice a day, docusate 100 mg 1 pill daily, Sarna lotion p.r.n., Flonase 16 g 1 puff twice a day, triamcinolone 0.5% b.i.d. p.r.n., albuterol MDI 2 puffs q.4 hours p.r.n., Lupron injections per his [facility]. 180 days, and prednisone will be tapered at 20 mg 3 pill to be 3 pills a day for 3 days, then 2 pills a day for 3 days and 1 pill a day for 3 days, then stop. Guaifenesin 600 mg 1 pill twice a day as needed for cough. He was also set up for home oxygen, please refer to documentation on chart. The patient has an appointment to see me in 08/25, so we will keep that. I did tell the patient to anticipate a cough that may go on for up to a month. The patient may need to be set up for an echocardiogram as an outpatient if there is a concern about pulmonary hypertension, but we will review his last echo when he is seen in the clinic for recheck. GM08/21/2019 08:41:05 MODL: 08/22/2019 02:41:16 /[id number]
== END 2019-08-21 12:50 | disposition home health service (06) | DRG 194 ==
LOC: VM.MS 11:41
PROVIDERS: ADMIT Family Medicine; ATTEND Family Medicine
DX: J10.00 Influenza due to other identified influenza virus with unspecified type of pneumonia (principal); I48.20 Chronic atrial fibrillation, unspecified; I13.0 Hypertensive heart and chronic kidney disease with heart failure and stage 1 through stage 4 chronic kidney disease, or unspecified chronic kidney disease; I38 Endocarditis, valve unspecified; J47.0 Bronchiectasis with acute lower respiratory infection; Z66 Do not resuscitate; E78.00 Pure hypercholesterolemia, unspecified; I50.9 Heart failure, unspecified; N18.3 Chronic kidney disease, stage 3 (moderate); G47.33 Obstructive sleep apnea (adult) (pediatric); F41.9 Anxiety disorder, unspecified; E11.40 Type 2 diabetes mellitus with diabetic neuropathy, unspecified; E11.22 Type 2 diabetes mellitus with diabetic chronic kidney disease; M25.511 Pain in right shoulder; G89.29 Other chronic pain; K21.9 Gastro-esophageal reflux disease without esophagitis; N40.0 Benign prostatic hyperplasia without lower urinary tract symptoms; E86.0 Dehydration; D50.9 Iron deficiency anemia, unspecified; J43.9 Emphysema, unspecified; J84.10 Pulmonary fibrosis, unspecified; Z85.46 Personal history of malignant neoplasm of prostate; Z79.899 Other long term (current) drug therapy; Z79.84 Long term (current) use of oral hypoglycemic drugs; Z87.891 Personal history of nicotine dependence; Z85.828 Personal history of other malignant neoplasm of skin; Z79.01 Long term (current) use of anticoagulants
CPT/HCPCS: 36415; 36600; 71046; 71260; 80048; 80053; 82803; 82962; 83605; 83880; 84484; 85025; 85379; 85610; 86140; 87040; 87070; 87205; 87804; 87804-59; 93005; 94640; 94660; 94760; 97161-GP; 97165-GO; 97535-GO; A9270-GY; J0696; J1815-GY; J2920; J2930; J7620-GY; Q9967